=== PATIENT | male | born 1955 | race Caucasian/White ===

== ENCOUNTER 2019-04-05 21:20 | Observation (INO) | payer MEDICARE, BC ==
[2019-04-05] MEDS ORDERED: Meclizine TAB* 12.5 MG PO ONE (21:55)
--- NOTE | 2019-04-05 21:55 | ED ---
Dizziness - HPI Summary HPI Summary: This patient is a 64 year old M presenting to [facility] with a chief complaint of "stroke-like symptoms" since earlier today. Pt notes he has loss of balance and dizziness with sweating. He denies dizziness when lying down. Pt states that his dizziness and loss of balance symptoms have never happened before. Pt took a cold shower, but then vomited. He notes he had some ABD pain earlier but no longer does. The patient rates the pain 4/10 in severity. Symptoms aggravated by nothing. Symptoms alleviated by nothing. Pt is on medication for high cholesterol and HTN - History Of Current Complaint Chief Complaint: EDNeurologicalDeficit Stated Complaint: STROKE LIKE SYMPTOMS PER EMS Time Seen by Provider: 04/05/19 21:32 Hx Obtained From: Patient Onset/Duration: Still Present, Suddenly Timing: Hours - occurred earlier today Character: Room Spinning Aggravating Factor(s): Nothing Alleviating Factor(s): Nothing Associated Signs And Symptoms: Positive: Vomiting, Other: - positive - loss of balance, dizziness, ABD pain, diaphoresis - Allergies/Home Medications Allergies/Adverse Reactions: Allergies Allergy/AdvReac Type Severity Reaction Status Date / Time ragweed pollen Allergy Difficulty Verified 04/05/19 21:39 Breathing/Wheezing Home Medications: Home Medications Lisinopril 10 mg PO BEDTIME 04/05/19 [History Confirmed 04/05/19] Zetia TAB* 10 mg PO BEDTIME 04/05/19 [History Confirmed 04/05/19] PMH/Surg Hx/FS Hx/Imm Hx Previously Healthy: No Sensory History: Denies: Hx Cataracts, Hx Vision Problem, Hx Deafness EENT History: Denies: Hx Deafness - Surgical History Surgical History: Yes Surgery Procedure, Year, and Place: artifical right ankle and left knee Infectious Disease History: Yes Infectious Disease History: Denies: Traveled Outside the [place] in Last 30 Days - Family History Known Family History: Positive: Cardiac Disease - Social History Alcohol Use: None Hx Substance Use: No Substance Use Type: Reports: None Hx Tobacco Use: No Smoking Status (MU): Never Smoked Tobacco Review of Systems Positive: Skin Diaphoresis Positive: Abdominal Pain - resolved, Vomiting Neurological: Other - positive - loss of balance and dizziness All Other Systems Reviewed And Are Negative: Yes Physical Exam - Summary Physical Exam Summary: VITAL SIGNS: Reviewed. GENERAL: Patient is a well-developed and nourished MALE who is lying comfortable in the stretcher. Patient is not in any acute respiratory distress. HEAD AND FACE: No signs of trauma. No ecchymosis, hematomas or skull depressions. No sinus tenderness. EYES: PERRLA, EOMI x 2, No injected conjunctiva, no nystagmus. EARS: Hearing grossly intact. Ear canals and tympanic membranes are within normal limits. MOUTH: Oropharynx within normal limits. NECK: Supple, trachea is midline, no adenopathy, no JVD, no carotid bruit, no c- spine tenderness, neck with full ROM CHEST: Symmetric, no tenderness at palpation LUNGS: Clear to auscultation bilaterally. No wheezing or crackles. CVS: Regular rate and rhythm, S1 and S2 present, no murmurs or gallops appreciated. ABDOMEN: Soft, non-tender. No signs of distention. No rebound no guarding, and no masses palpated. Bowel sounds are normal. EXTREMITIES: FROM in all major joints, no edema, no cyanosis or clubbing. NEURO: Alert and oriented x 3. No acute neurological deficits. Speech is normal and follows commands. SKIN: Dry and warm Triage Information Reviewed: Yes Vital Signs On Initial Exam: Initial Vitals Temp Pulse Resp BP Pulse Ox 97 F 64 16 167/93 99 04/05/19 21:34 04/05/19 21:34 04/05/19 21:34 04/05/19 21:34 04/05/19 21:34 Vital Signs Reviewed: Yes Diagnostics - Vital Signs Vital Signs Temp Pulse Resp BP Pulse Ox 04/05/19 21:34 97 F 64 16 167/93 99 - Laboratory Lab Statement: Any lab studies that have been ordered have been reviewed, and results considered in the medical decision making process. - CT Head CTA CT Interpretation Completed By: Radiologist Summary of CT Findings: IMPRESSION: No occlusion or hemodynamically significant stenosis in the arteries of the. neck. These findings were reviewed by Dr. Morales. Dizzy Course/Dx - Course Course Of Treatment: This patient is a 64 year old M presenting to [facility] with a chief complaint of "stroke-like symptoms" since earlier today. Pt notes he has loss of balance and dizziness with sweating. He denies dizziness when lying down. Pt states that his dizziness and loss of balance symptoms have never happened before. Pt took a cold shower, but then vomited. He notes he had some ABD pain earlier but no longer does. The patient rates the pain 4/10 in severity. Symptoms aggravated by nothing. Symptoms alleviated by nothing. Pt is on medication for high cholesterol and HTN. Physical exam shows no remarkable findings. Pt ambulated without being off balance. CVA was ruled out. Head CTA IMPRESSION: No occlusion or hemodynamically significant stenosis in the arteries of the neck. During the ED course, the pt was given Antivert. Dx is vertigo. At 0050 Dr. Morales discusses pt's case with Dr. Galloway, hospitalist, who agrees to admit pt. Pt is agreeable - Diagnoses Provider Diagnoses: Vertigo - Provider Notifications Discussed Care Of Patient With: Connie Galloway Time Discussed With Above Provider: 00:50 Instructed by Provider To: Other - Dr. Morales discusses pt's case with Dr. Galloway , hospitalist, who agrees to admit pt. Discharge - Sign-Out/Discharge Documenting (check all that apply): Patient Departure - admit Patient Received Moderate/Deep Sedation with Procedure: No - Discharge Plan Condition: Stable Disposition: ADMITTED TO [facility] - Attestation Statements Document Initiated by Scribe: Yes Documenting Scribe: Judah Jeter Provider For Whom Scribe is Documenting (Include Credential): Dr. Pedro Morales MD Scribe Attestation: Judah Almanzar, scribed for Dr. Pedro Morales MD on 04/06/19 at 0310. Status of Scribe Document: Ready
[2019-04-05] MEDS ORDERED: Iohexol 350* (CONTRAST) 500 ML MDV IV ONE (22:58)
--- NOTE | 2019-04-06 01:29 | HP ---
History of Present Illness - History of Present Illness Reason for Visit: Dizziness, Nausea, Vomiting, Sweating, Headache History of Present Illness: 64yoM with HTN, Dyslipidemia sent from [facility] for possible stroke workup. Patient states he woke up from sleep with dizziness, sweating and severe frontal headache. This was accompanied by nausea/vomiting in few hours. Dizziness was vertigo type with room spinning sensation, with difficulty walking. Headache was initially 6/10 intensity now down to 3/10 without any pain medication. No chest pain, shortness of breath. He took aspirin on route thinking it was an NE. Allergies Allergy/AdvReac Type Severity Reaction Status Date / Time ragweed pollen Allergy Difficulty Verified 04/05/19 21:39 Breathing/Wheezing Home Medications Medication Instructions Recorded Confirmed Type Lisinopril 10 mg PO BEDTIME 04/05/19 04/05/19 History Zetia TAB* 10 mg PO BEDTIME 04/05/19 04/05/19 History - Past Medical History Cardiac: HTN, Hyperlipidemia - Left Gastrointestinal: GERD - Past Surgical History Past Surgical History: Other - Right Ankle surgery 2011, Total Knee Replacement - Left Knee 2017, MRSA infection so had total 3 operations [May and Jun 2016] - Past Family History Family History: Cancer - Mother at age 84 was diagnosed with Colorectal Ca at 81, CAD - Dad of heart attact at age 72., CVA - Uncle on dad's side had stroke. 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 Review of Systems - Measurements Intake and Output: Intake and Output Last 24 Hours 04/03/19 04/04/19 04/05/19 04/06/19 06:59 06:59 06:59 06:59 Weight 205 lb - Review of Systems Constitutional Symptoms: Negative: Fever Dermatology: Negative: Rash, Skin Lesions Eyes: Positive: Change in Vision - Things looks a bit blurry initially but now back to normal. Pulmonary: Negative: Cough, Sputum, Wheezing, Shortness of Breath Cardiology: Negative: Chest Pain, Shortness of Breath, Palpitations, Edema Gastroenterology: Positive: Nausea, Vomiting Negative: Abdominal Pain, Constipation, Diarrhea Musculoskeletal: Negative: Joint Pain Neurology: Positive: Dizziness Negative: Numbness\Paresthesiae, Unexplained Weakness Objective Vital Signs - 8 hr 04/05/19 04/05/19 04/05/19 21:34 21:43 22:25 Temperature 97 F Pulse Rate 64 64 61 Respiratory 16 23 17 Rate Blood Pressure 167/93 134/84 (mmHg) O2 Sat by Pulse 99 92 97 Oximetry 04/05/19 04/05/19 04/05/19 23:00 23:05 23:25 Temperature Pulse Rate 63 62 Respiratory 10 12 12 Rate Blood Pressure 148/78 (mmHg) O2 Sat by Pulse 98 97 Oximetry 04/05/19 04/06/19 04/06/19 23:55 00:00 00:25 Temperature Pulse Rate 64 59 58 Respiratory 14 12 26 Rate Blood Pressure 121/66 132/71 (mmHg) O2 Sat by Pulse 97 97 95 Oximetry 04/06/19 04/06/19 00:55 01:00 Temperature Pulse Rate 64 60 Respiratory 10 22 Rate Blood Pressure 129/74 (mmHg) O2 Sat by Pulse 96 94 Oximetry Oxygen Devices in Use Now: None Eyes: No Scleral Icterus, PERRLA Ears/Nose/Mouth/Throat: NL Teeth, Lips, Gums, Clear Oropharnyx, Mucous Membranes Moist Neck: NL Appearance and Movements; NL JVP, Trachea Midline, No Thyroid Enlargement, Masses Respiratory: Clear to Auscultation Cardiovascular: NL Sounds; No Murmurs; No JVD, RRR, No Edema Abdominal: NL Sounds; No Tenderness; No Distention Extremities: No Edema, No Clubbing, Cyanosis Skin: No Rash or Ulcers Neurological: Alert and Oriented x 3, NL Sensation, NL Muscle Strength and Tone Nutrition: Taking PO's Additional Lab and Data: Reviewed CBC, CMP and INR from [facility] only significant finding is minimally elevated random glucose. Diagnostic Imaging: CT Angiography Head With Contrast IMPRESSION: No intracranial arterial occlusion or hemodynamically significant stenosis. CT Angiography Neck With Contrast IMPRESSION: No occlusion or hemodynamically significant stenosis in the arteries of the neck. EKG Data: Sinus Bradycardia at 57bpm Assess/Plan/Problems-Billing Assessment: - Patient Problems (1) Dizziness Current Visit: Yes Status: Acute Code(s): R42 - DIZZINESS AND GIDDINESS SNOMED Code(s): 303328977 Comment: Likely vertigo cannot rule out possible posterior circulation CVA. Neurochecks. Dr. Walter made aware by ER who will evaluate the patient in AM. During my evaluation patient didn't have any real symptoms except some residual headache which was resolving on its own. MRI based on neurology recommendation. Start daily aspirin starting morning. Add PRN meclizine. Patient tolerating PO in ER so no need of any swallow evaluation. Will get PT evaluation. Stroke risk evaluation with telemetry monitoring, A1c, Lipid panel. (2) Headache Current Visit: Yes Status: Acute Code(s): R51 - HEADACHE SNOMED Code(s): 04700310 Comment: For now start tylenol PRN. (3) HTN (hypertension) Current Visit: Yes Status: Acute Code(s): I10 - ESSENTIAL (PRIMARY) HYPERTENSION SNOMED Code(s): 65835002 Comment: Restart home lisinopril. (4) Dyslipidemia Current Visit: Yes Status: Acute Code(s): E78.5 - HYPERLIPIDEMIA, UNSPECIFIED SNOMED Code(s): 846691297 Comment: Restart zetia. Check fasting lipid panel. Consider statin based on lipid panel.
[2019-04-06] MEDS ORDERED: NS 0.9% 1000 ML** 1,000 ML IV SCH (02:15)
[2019-04-06] MEDS ORDERED: Meclizine TAB* 12.5 MG PO PRN (02:33)
[2019-04-06] MEDS ORDERED: Enoxaparin(*) 40 MG/0.4 ML SYR SUBCUT SCH ×2 (03:00→10:00)
[2019-04-06 06:57] LABS: ABS Basophils 0.1 10^3/ul (0-0.2); ABS Eosinophils 0.3 10^3/ul (0-0.6); ABS Lymphocytes 1.9 10^3/ul (1.0-4.8); ABS Monocytes 0.8 10^3/ul (0-0.8); Eosinophil % 4.8 %; Hematocrit 47 % (42-52); Lymphocyte % 27.2 %; Mean Corpuscular HGB Conc 34 g/dL (31-36); Mean Corpuscular Hemoglobin 32 pg (27-31); Mean Corpuscular Volume 94 fL (80-94); Mean Platelet Volume 7.9 fL (7.4-10.4); Nucleated Red Blood Cells % 0.1; Platelet Count 162 10^3/uL (150-450); Red Blood Count 5.03 10^6 /uL (4.18-5.48); Red Cell Distribution Width 14 % (10-15); White Blood Count 7.1 10^3/uL (3.5-10.8)
[2019-04-06 07:23] LABS: BUN/Creatinine Ratio 17.3 (8-20); Calcium 8.6 mg/dL (8.6-10.3); EGFR African American 86.5 (>60); EGFR Non-African American 71.5 (>60); Potassium 4.3 mmol/L (3.5-5.0)
[2019-04-06] MEDS ORDERED: Aspirin EC TAB* 81 MG TAB.EC PO SCH (09:00)
[2019-04-06 13:19] VITALS: BP 129/71
--- NOTE | 2019-04-06 19:07 | DS ---
Resident Discharge Summary Discharge Summary: Date of Admission: 04/06/19 Date of Discharge: 04/06/19 Admitting MD: Alf Galloway MD Attending MD: Alf Galloway MD Primary Care Physician: DEE [place] Home Medications Medication Instructions Recorded Confirmed Type Lisinopril 10 mg PO BEDTIME 04/05/19 04/05/19 History Zetia TAB* 10 mg PO BEDTIME 04/05/19 04/05/19 History Disposition: Home Condition: Stable and ambulatory. Use hand railing while climbing stairs. Primary Diagnosis: Vertigo Secondary Diagnosis: Meniere's disease. Stroke from [employer] occlusion Orthostatic hypotension. BPPV Diagnostic Imaging: CTA head: No occlusion or hemodynamically significant stenosis. MRI Brain: No acute intracranial abnormality. Mild chronic small vessel disease. Pertinent Laboratory Results: HbA1c: 6.1 Blood glucose 99 Hospital Course: 64 y/o M w/ PMH of HLD, HTN and b/l hearing loss(more in one ear; he doeasnot remember which one) p/w 2 episodes of dizziness (standing from chair and while going to bathroom), sweating, severe frontal headache and 5 episodes of vomiting. Admitted with diagnosis of Vertigo. See dictated full H&P for full details. Patient improved symptomatically and there was no any acute events during hospital stay. Follow Up Instructions: In case of an emergency or after clinic hours, please go to your nearest Emergency Department. You may also call the [facility] skidder lever operator at . Follow up with ENT for evaluation of Vertigo and hearing aid. Follow up with PCP for high HbA1C.
--- NOTE | 2019-04-06 19:34 | CONS ---
CONSULTATION REPORT: DATE OF CONSULT: 04/06/19 PATIENT OF: Dr. Galloway and Dr. Rodriguez. HISTORY OF PRESENT ILLNESS: This is a 64-year-old man I am asked to evaluate for an episode of dizziness. He was taking a nap yesterday and was lightheaded after that and sweaty and then, shortly after waking up, had an intense room spinning sensation that was worse with movement and he staggered. He had some vomiting with this. He has some 6/10 headache and now this is resolved. He has had some chronic tinnitus in the past few months' time and has had chronic hearing loss. He had no visual symptoms. No numbness or weakness, but says he presented initially to [place] and was transferred here for further evaluation. He has hypertension and hyperlipidemia and is on lisinopril 10 mg at bedtime at home and Zetia 10 mg at bedtime. He has a history of GERD. He is status post right ankle surgery and left knee replacement. He has had MRSA infection. 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 He does not smoke or use alcohol. REVIEW OF SYSTEMS: Negative in all 14 spheres, other than the HPI. DIAGNOSTIC STUDIES/LAB DATA: I reviewed his MRI scan, of which the report is pending, but showed no acute stroke. His CTA showed no significant large- vessel occlusion. Blood work includes normal CBC. Chemistry, LDL was 120. Hemoglobin was 6.1. IMPRESSION: Randy's dizziness by history associated with hearing loss, tinnitus, and dizziness that was much worse with changes in head position is most likely peripheral. He has a negative MRI scan to my eye for acute cerebellar stroke. 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 It is possible that this could represent the beginning of Meniere disease with history of hearing loss, tinnitus, and now an attack of acute positional vertigo. I would not do anything about that possibility at this time, but I have mentioned it to the patient. It is possible that he will need to see ENT in the future. Thank you for sharing his case. [id number]/[facility] #: [id number] ROZ
[2019-04-06] MEDS ORDERED: Ezetimibe TAB* 10 MG PO SCH (21:00)
[2019-04-06] MEDS ORDERED: Lisinopril TAB* 10 MG PO SCH (21:00)
--- NOTE | 2019-04-06 23:02 | DS ---
DISCHARGE SUMMARY: DATE OF ADMISSION: 04/06/19 DATE OF DISCHARGE: 04/06/19 PRIMARY CARE PROVIDER: Madison Rueda PA-C. DISPOSITION ON DISCHARGE: Home. CONDITION ON DISCHARGE: Good. PRIMARY DIAGNOSIS: Significant vertigo. SECONDARY DIAGNOSES: 1. Hypotension. 2. Prediabetes. MEDICATIONS ON DISCHARGE: Include: 1. Zetia 10 mg at bedtime. 2. Lisinopril 10 mg at bedtime. DIAGNOSTIC STUDIES/LAB DATA: Pertinent imaging during hospital stay: Brain MRI : Without evidence of infarct. Head and neck CTA: Without evidence of clinically significant stenosis. Pertinent laboratory data: Hemoglobin A1c is 6.1. HISTORY OF PRESENT ILLNESS AND HOSPITAL COURSE: This is a 64-year-old man with past medical history as outlined in the history of present illness. On the day of admission, presented to the hospital with dizziness after standing up several times. He was admitted for further evaluation of his symptoms. It is noted that he had been . He was not drinking much, felt dehydrated. He had these symptoms after lying flat and standing up, was concerned for orthostatic symptoms; however, did not have orthostatic vital signs prior to receiving fluids. Additionally, he has had some tinnitus, concerned for development of Meniere's and/or BPPV. In either case, his symptoms have resolved upon discharge. He ambulated around the unit decreasing the likelihood of BPPV as well as Meniere's. No evidence of CVA on imaging. 1. Follow up on symptoms, refer for further ENT testing if necessary based on symptom resolution or persistence. 2. Hemoglobin A1c is 6.1. Monitor carefully or consider therapy for prediabetes. 3. No other specific labs or vitals that need followup. 4. Reasons to return to the hospital including, but not limited to, recurrent or worsening symptoms, chest pain, shortness of breath, nausea, vomiting, lightheadedness, loss of consciousness or near loss of consciousness, weakness, unilateral weakness, and difficulty talking, speaking or changes in consciousness were discussed with the patient. He acknowledged understanding. TIME SPENT: Greater than 45 minutes was spent on the discharge of the patient, greater than half was spent [id number] with the patient. [id number]/[facility] #: [id number] ROZ
== END 2019-04-06 18:39 | disposition home or self-care (01) ==
LOC: ED 21:20 → MEDTELE 04-06 02:15
PROVIDERS: ADMIT Internal Medicine; ATTEND Internal Medicine
DX: R42 Dizziness and giddiness (principal); I95.9 Hypotension, unspecified; I10 Essential (primary) hypertension; K21.9 Gastro-esophageal reflux disease without esophagitis; E78.5 Hyperlipidemia, unspecified; R73.03 Prediabetes; Z86.14 Personal history of Methicillin resistant Staphylococcus aureus infection
CPT/HCPCS: 36415; 70496; 70498; 70551; 80048; 80061; 83036; 85025; 96372; 99284; A9270-GY; G0378; G8978-GP-CI; G8979-GP-CH; J1650; Q9967